=== PATIENT | female | born 1995 | race Caucasian/White ===

== ENCOUNTER 2021-08-02 08:45 | Emergency (ER) | payer OTHER ==
[2021-08-02 09:00] VITALS: BP 137/93
--- NOTE | 2021-08-02 09:51 | ED Physician Documentation ---
History of Present Illness - Stated complaint Stated Complaint: CYST - Chief complaint Chief Complaint: Wound - History obtained from History obtained from: Patient - History of Present Illness Timing: Other (1 month) Pain level max: 7 Pain level now: 4 - Additonal information Additional information: 26-year-old female presents to the emergency department with swelling near the gluteal cleft. This was present earlier in the month, but resolved and is now recurred, is larger and painful. Has never had this before. Worse with palpation. Nothing makes it better. No fevers. No chills. Denies any possibility of . Review of Systems Constitutional: denies: Fever, Chills GI: denies: Vomiting, Diarrhea : denies: Now [facility] PAST MEDICAL HISTORY - Past Medical History Past Medical History: No - Past Surgical History Past Surgical History: No - Present Medications Home Medications: Ambulatory Orders Medication Instructions Recorded Confirmed HYDROcod/ACETAM 5/325 [[place] 5/325] 1 - 2 ea PO Q6H PRN #10 tablet 08/02/21 clindamycin HCL [Cleocin HCl] 300 mg PO Q6H #40 cap 08/02/21 - Allergies Allergies/Adverse Reactions: Allergies Allergy/AdvReac Type Severity Reaction Status Date / Time No Known Drug Allergies Allergy Verified 08/02/21 09:01 - Living Situation Living Situation: reports: With family Living Arrangement: reports: At home - Social History Does the pt smoke?: No Does the pt have substance abuse?: No PD ED PE NORMAL - Vitals Vital signs reviewed: Yes - General General: Alert and oriented X 3, No acute distress - HEENT HEENT: PERRL, Moist mucous membranes - Neck Neck: Supple, no meningeal sign - Cardiac Cardiac: RRR - Respiratory Respiratory: No respiratory distress, Clear bilaterally - Abdomen Abdomen: Soft, Non tender, Non distended - Derm Derm: Warm and dry - Extremities Extremities: Other (2 x 2 centimeter indurated fluctuant area to the top of the gluteal cleft.) - Neuro Neuro: Alert and oriented X 3 - Psych Psych: Normal mood, Normal affect Results - Vitals Vitals: Vital Signs - 24 hr 08/02/21 08:57 Temperature 36.9 C Heart Rate 101 H Respiratory 16 Rate Blood Pressure 137/93 H O2 Saturation 99 Oxygen O2 Source Room air - Labs Labs: Microbiology 08/02/21 09:40 Wound Culture - Preliminary Abscess Procedures - Abscess I&D (location) Pilonidal cyst Preparation: Confirmed with ultrasound, Lidocaine 1% Incision: Incised with scalpel, Purulent drainage, Packed, Culture obtained Other: Pt tolerated well, Dressing applied, Antibiotic prescribed PD MEDICAL DECISION MAKING - ED course Complexity details: considered differential, d/w patient ED course: 26-year-old female with a pilonidal cyst. Confirmed with ultrasound. The area was incised and drained. Tolerated well. Will place on antibiotics for home. We will have her follow-up with her doctor for further care. Patient was counseled that after the infection clears she may want to see a surgeon to remove the cyst. Patient counseled regarding signs and symptoms for which I believe and urgent re-evaluation would be necessary. Patient with good understanding of and agreement to plan and is comfortable going home at this time This document was made in part using voice recognition software. While efforts are made to proofread this document, sound alike and grammatical errors may occur. Departure - Departure Disposition: 01 Home, Self Care Clinical Impression: Pilonidal cyst Condition: Good Instructions: ED Cyst Pilonidal Infected IandD Follow-Up: your,doctor in 1 week [Other] Prescriptions: clindamycin HCL [Cleocin HCl] 300 mg PO Q6H #40 cap HYDROcod/ACETAM 5/325 [[place]yman 5/325] 1 - 2 ea PO Q6H PRN #10 tablet PRN Reason: Pain Comments: Take all antibiotics until gone. Return here in 2 days for a wound check. Follow-up with your doctor in about 1 week to ensure continued healing. Your prescriptions were sent to [facility] in [place]. I am prescribing a short course of narcotic pain medication for you. These are potentially dangerous and addictive medications that should be used carefully. These medications may constipate you. Take an ussd-xjh-gktmify stool softener (docusate) twice daily with plenty of water while taking these medications. If you go 24 hours without a bowel movement, take svho-[id number] miralax, per package instructions. Do not drink or drive while taking these medications. If you received narcotic or sedating medications while in the emergency department, do not drive for 24 hours. Store this medication in a safe, secure place and out of reach of children. It is a violation of federal law to give or sell this medication to another person or to use in a manner other than prescribed. The ED will not refill narcotic prescriptions, including prescriptions lost or stolen. To dispose of unwanted medications: 1. [facility] at [address] in [place] has a medication drop box. They accept prescription medications (in pill form) Monday through Monday 9:00 a.m. to 5:00 p.m. 2. [facility] [employer] accepts prescription medications (in pill form only) for disposal year round. Call for more information. 3. Contact the [facility] for the next [employer] sponsored prescription drug collection event. , [phone], or [phone]; Discharge Date/Time: 08/02/21 10:21
== END 2021-08-02 10:21 | disposition home or self-care (01) ==
LOC: ED 08:45
DX: L05.01 Pilonidal cyst with abscess (principal)
CPT/HCPCS: 10081; 87070; 87205; 99284

== ENCOUNTER 2021-08-04 08:33 | Emergency (ER) | payer OTHER ==
[2021-08-04 08:40] VITALS: BP 142/89
--- NOTE | 2021-08-04 08:44 | ED Physician Documentation ---
PD HPI WOUND RECHECK - Stated complaint Stated Complaint: CYST F/U - Chief complaint Chief Complaint: Wound - Histroy obtained from History obtained from: Patient - History of Present Illness Location: Other (pilonidal area cyst infection with I&D 2 days ago, with packing, on Clindamycin.) Associated symptoms: Drainage (she states still some drainage on dressings, decreasingly.) Recently seen: Emergency Dept (2 days ago) PD PAST MEDICAL HISTORY - Past Surgical History Past Surgical History: No - Present Medications Home Medications: Ambulatory Orders Medication Instructions Recorded Confirmed HYDROcod/ACETAM 5/325 [[place] 5/325] 1 - 2 ea PO Q6H PRN #10 tablet 08/02/21 clindamycin HCL [Cleocin HCl] 300 mg PO Q6H #40 cap 08/02/21 - Allergies Allergies/Adverse Reactions: Allergies Allergy/AdvReac Type Severity Reaction Status Date / Time No Known Drug Allergies Allergy Verified 08/04/21 08:40 - Social History Does the pt smoke?: No Smoking Status: Never smoker Does the pt have substance abuse?: No - Immunizations Immunizations are current?: Yes PD ED PE NORMAL - Vitals Vital signs reviewed: Yes - General General: No acute distress - Derm Derm: Normal color, Warm and dry, Other (The pilonidal area has a localized tender area without any redness or swelling. Packing in place with tail hanging out. This is removed easily. No further drainage.) Results - Vitals Vitals: Vital Signs - 24 hr 08/04/21 08:38 Temperature 36.7 C Heart Rate 64 Respiratory 16 Rate Blood Pressure 142/89 H O2 Saturation 99 Oxygen O2 Source Room air PD MEDICAL DECISION MAKING - ED course Complexity details: reviewed results (The packing is removed and no drainage at this point. I think the packing can stay out. Culture is still preliminary showing gram-positive cocci. Remain on clinda for now.), considered differential, d/w patient ED course: She is due to go on deployment in 5 days. She asked if that would still be feasible. At the size of the abscess and improvement so far, I think it will be improved enough 5 days from now. Departure - Departure Disposition: 01 Home, Self Care Clinical Impression: Encounter for recheck of abscess following incision and drainage Condition: Stable Record reviewed to determine appropriate education?: Yes Instructions: ED Abscess IandD Follow-Up: RITO Carveridbemarshal Carl [Provider Group] Comments: The area appears pretty good this morning. It is cloth finishing range back tender and he said there is still been some drainage so the infection has not completely cleared. However it does appear that you do not need the packing anymore. To 3 times daily apply warm moist towels or sit in a bath to allow some cleansing of the area. Try to massage around it and see if any more purulence will come out. Continue with the clindamycin for now. Your cultures showing preliminary bacte rial growth but not identified clearly enough as yet. Later today or tomorrow it should and we will call you if we need to change antibiotics based on it. Right now it looks like the appropriate antibiotic. Continue with some anti-inflammatory such as ibuprofen 3 times daily. Add the pain medicine previously prescribed if needed. Regarding your deployment in 5 days, I think this will be cleared fairly well by that point that it should not hinder or delay your deployment. [place] well over the next 2 to 3 days however. Discharge Date/Time: 08/04/21 09:26
== END 2021-08-04 09:26 | disposition home or self-care (01) ==
LOC: ED 08:33
DX: L05.01 Pilonidal cyst with abscess (principal)
CPT/HCPCS: 99281

== ENCOUNTER 2022-04-05 05:40 | Emergency (ER) | payer OTHER ==
[2022-04-05] MEDS ORDERED: ONDANSETRON 4 MG/2 ML VIAL IVP STA (06:01)
[2022-04-05] MEDS ORDERED: SODIUM CHLORIDE 0.9% 2,000 ML IV STA (06:01)
[2022-04-05] MEDS ORDERED: MORPHINE 2 MG/ML CARPUJECT IVP STA (06:01)
[2022-04-05 06:04] LABS: BILIRUBIN,URINE NEGATIVE (NEGATIVE); GLUCOSE, URINE (UA) NEGATIVE (NEGATIVE); KETONES,URINE (UA) NEGATIVE (NEGATIVE); LEUKOCYTE ESTERASE, URINE NEGATIVE (NEGATIVE); NITRITE,URINE NEGATIVE (NEGATIVE); OCCULT BLOOD,URINE NEGATIVE (NEGATIVE); PH,URINE 6.5 PH (5.0-7.5); PROTEIN,URINE TRACE mg/dL (NEGATIVE); UROBILINOGEN,URINE 0.2 (NORMAL) E.U./dL (NORMAL)
[2022-04-05 06:05] LABS: CLARITY,URINE CLEAR (CLEAR)
[2022-04-05 06:06] LABS: HCG UR QUAL NEGATIVE
--- NOTE | 2022-04-05 06:08 | ED Physician Documentation ---
History of Present Illness - Stated complaint Stated Complaint: ABN PX/N/D - Chief complaint Chief Complaint: Abd Pain - History obtained from History obtained from: Patient - Additonal information Additional information: 26-year-old woman, previously healthy, presents with nausea, vomiting, nonbloody nonbilious and abdominal pain and diarrhea X1 day. Epigastric pain, nonradiating, intermittent, 10 out of 10 in severity. Denies blood in the diarrhea. Did have rotavirus exposure recently. Review of Systems Constitutional: denies: Fever GI: reports: Abdominal Pain, Nausea, Vomiting, Diarrhea : denies: Dysuria PD PAST MEDICAL HISTORY - Past Surgical History Past Surgical History: No - Present Medications Home Medications: Ambulatory Orders Medication Instructions Recorded Confirmed HYDROcod/ACETAM 5/325 [[place] 5/325] 1 - 2 ea PO Q6H PRN #10 tablet 08/02/21 clindamycin HCL [Cleocin HCl] 300 mg PO Q6H #40 cap 08/02/21 Ondansetron Odt [Zofran] 4 mg TL Q6H PRN #10 tablet 04/05/22 - Allergies Allergies/Adverse Reactions: Allergies Allergy/AdvReac Type Severity Reaction Status Date / Time No Known Drug Allergies Allergy Verified 04/05/22 05:48 - Social History Does the pt smoke?: No Smoking Status: Never smoker Does the pt have substance abuse?: No - Immunizations Immunizations are current?: Yes PD ED PE NORMAL - Vitals Vital signs reviewed: Yes - General General: Alert and oriented X 3, Other (tearful) - HEENT HEENT: Atraumatic, PERRL, EOMI - Cardiac Cardiac: Other (tachycardic rate, regular rhythm) - Respiratory Respiratory: No respiratory distress, Clear bilaterally - Abdomen Abdomen: Non tender, Non distended Results - Vitals Vitals: Vital Signs - 24 hr 04/05/22 05:44 Temperature 36.4 C L Heart Rate 140 H Respiratory 24 Rate Blood Pressure 145/107 H O2 Saturation 98 Oxygen O2 Source Room air - Labs Labs: Laboratory Tests 04/05/22 04/05/22 04/05/22 05:51 05:51 06:20 WBC 8.1 RBC 5.18 Hgb 15.2 Hct 45.0 MCV 86.9 MCH 29.3 MCHC 33.8 RDW 12.4 Plt Count 198 MPV 10.3 Neut # (Auto) 6.7 H Lymph # (Auto) 0.8 L [place] # (Auto) 0.4 Eos # (Auto) 0.1 Baso # (Auto) 0.0 Absolute Nucleated RBC 0.00 Nucleated RBC % 0.0 Sodium Potassium Chloride Carbon Dioxide Anion Gap BUN Creatinine Estimated GFR (MDRD) Glucose Calcium Total Bilirubin AST ALT Alkaline Phosphatase Total Protein Albumin Globulin Albumin/Globulin Ratio Lipase Urine Color YELLOW Urine Clarity CLEAR Urine pH 6.5 Ur Specific [place] 1.025 Urine Protein TRACE Urine Glucose (UA) NEGATIVE Urine Ketones NEGATIVE Urine Occult Blood NEGATIVE Urine Nitrite NEGATIVE Urine Bilirubin NEGATIVE Urine Urobilinogen 0.2 (NORMAL) Ur Leukocyte Esterase NEGATIVE Ur Microscopic Review NOT INDICATED Urine Culture Comments NOT INDICATED Urine HCG, Qual NEGATIVE 04/05/22 06:20 WBC RBC Hgb Hct MCV MCH MCHC RDW Plt Count MPV Neut # (Auto) Lymph # (Auto) [place] # (Auto) Eos # (Auto) Baso # (Auto) Absolute Nucleated RBC Nucleated RBC % Sodium 137 Potassium 4.0 Chloride 106 Carbon Dioxide 22 Anion Gap 9.0 BUN 19 Creatinine 0.8 Estimated GFR (MDRD) 87 L Glucose 125 H Calcium 9.1 Total Bilirubin 1.2 H AST 17 ALT 19 Alkaline Phosphatase 62 Total Protein 7.8 Albumin 4.4 Globulin 3.4 Albumin/Globulin Ratio 1.3 Lipase 44 Urine Color Urine Clarity Urine pH Ur Specific [place] Urine Protein Urine Glucose (UA) Urine Ketones Urine Occult Blood Urine Nitrite Urine Bilirubin Urine Urobilinogen Ur Leukocyte Esterase Ur Microscopic Review Urine Culture Comments Urine HCG, Qual PD Medical Decision Making - ED course ED course: 26-year-old woman presents with clinical viral gastroenteritis. CBC and abdominal panel ordered. Benign labs. Symptomatic care provided, including IV morphine and zofran with improvement. Plan to dc home to f/u outpatient pcp. return precautions given. Departure - Departure Disposition: , Self Care Clinical Impression: Abdominal pain, Vomiting Condition: Stable Instructions: ED Diet Vomiting Diarrhea Prescriptions: Ondansetron Odt [Zofran] 4 mg TL Q6H PRN #10 tablet PRN Reason: Nausea / Vomiting Comments: You were seen in the emergency department for viral gastroenteritis. Please stay well-hydrated and get lots of rest. [facility] [place] for Zofran, an antinausea medication. Please follow-up with your primary care provider. Forms: Activity restrictions
[2022-04-05 06:27] LABS: BASOPHILS % (AUTO) 0.4 %; EOSINOPHILS # (AUTO) 0.1 10^3/uL (0.0-0.7); EOSINOPHILS % (AUTO) 0.7 %; HGB - HEMOGLOBIN 15.2 g/dL (12.0-16.0); LYMPHOCYTES # (AUTO) 0.8 10^3/uL (1.5-3.5); LYMPHOCYTES % (AUTO) 10.2 %; MEAN CORPUSCULAR HEMOGLOBIN 29.3 pg (27.0-31.0); MEAN CORPUSCULAR HGB CONC 33.8 g/dL (32.0-36.0); MEAN CORPUSCULAR VOLUME 86.9 fL (81.0-99.0); MEAN PLATELET VOLUME 10.3 fL (7.9-10.8); MONOCYTES # (AUTO) 0.4 10^3/uL (0.0-1.0); MONOCYTES % (AUTO) 5.1 %; NEUTROPHILS # (AUTO) 6.7 10^3/uL (1.5-6.6); NEUTROPHILS % (AUTO) 83.4 %; PLT - PLATELET COUNT 198 10^3/uL (130-450); RED BLOOD COUNT 5.18 10^6/uL (4.20-5.40); RED CELL DISTRIBUTION WIDTH 12.4 % (12.0-15.0); WHITE BLOOD COUNT 8.1 x10^3/uL (4.8-10.8)
[2022-04-05 06:40] LABS: ALBUMIN 4.4 g/dL (3.2-5.5); ALBUMIN/GLOBULIN RATIO 1.3 (1.0-2.2); BILIRUBIN,TOTAL 1.2 mg/dL (0.2-1.0); CALCIUM 9.1 mg/dL (8.5-10.3); CREATININE 0.8 mg/dL (0.4-1.0); TOTAL PROTEIN 7.8 g/dL (6.7-8.2)
[2022-04-05 07:11] VITALS: BP 105/63
== END 2022-04-05 07:21 | disposition home or self-care (01) ==
LOC: ED 05:40
DX: R11.2 Nausea with vomiting, unspecified (principal); R10.13 Epigastric pain
CPT/HCPCS: 36415; 80053; 81001; 81003; 81025; 83690; 85025; 87086; 99283